=== PATIENT | female | born 1990 | race Caucasian/White ===

== ENCOUNTER 2016-11-14 09:41 | Emergency (ER) | payer MEDICAID ==
[~2016-11-14] VITALS: Ht 172.7 cm; Wt 86.4 kg
[~2016-11-14 09:41] MED LIST: BUPR150T12 PO; HYDR25CA PO; NPR500T PO
[2016-11-14 09:56] VITALS: BP 127/88; PULSE 114; RESP 16; O2SAT 97
--- NOTE | 2016-11-14 10:20 | ED.REPORT ---
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 The swelling and pain started immediately after the injection. Pt denies CP and SOB. Pt tried to use Suboxone at crisis last week. She uses about 0.4g of heroin daily and also uses methamphetamine. She has used for about 1 year. Pt denies THC and cocaine use. Nursing Notes Stated Complaint: POSSIBLE ALLERGIC REACTION Chief Complaint: Skin Rash/Abscess Nursing Notes Reviewed: Yes Allergies: Coded Allergies: Sulfa (Sulfonamide Antibiotics) (Verified Allergy, Severe, 04/08/16) Penicillins (Verified Allergy, Unknown, rash, 04/08/16) Scheduled Bupropion ER (Bupropion ER) 150 Mg Tablet.er 150 MG PO DAILY Scheduled PRN Hydroxyzine Pamoate (Vistaril) 25 Mg Capsule 25 MG PO Q6H PRN PRN ANXIETY Naproxen (Naproxen) 500 Mg Tab 500 MG PO BID PRN PRN For Pain General Time Seen by MD: 10:19 Chief Complaint Swelling (R forearm) Hx Obtained From: Patient Arrived By: Walk-in Onset Occurred: 16 - 30 minutes ago Symptom Duration: Since onset Location: : Arm right Quality: Painful Severity: Current: Mild Pertinent Negative: Relieved by nothing Past Medical History Past Medical History Anxiety Polysubstance abuse Past Surgical History Denies Smoking History Former Smoker Social History Alcohol Use: Denies alcohol use Drug Use: IV drugs (Heroin) Review of Systems Constitutional: Denies: Fever Respiratory: Denies: Shortness of breath GI: Denies: Abdominal pain, Vomiting Skin: Reports Rash, Reports Swelling Complete sys rev & neg: except as marked. Cardiovascular: Denies: Chest pain Physical Exam Initial Vital Signs Vital Signs (First) Date Time Temp Pulse Resp B/P Pulse Ox O2 Delivery O2 Flow Rate FiO2 11/14/16 09:56 36.6 114 16 127/88 97 Initial VS: Reviewed Head / Eyes: Atraumatic, Normocephalic, PERRL ENT: Mucous membranes moist, Conjunctiva normal, No scleral icterus Neck: Full range of motion Abdomen / GI: Soft, Non-tender Extremities: Vascular intact, Neuro intact Neurologic: Alert, Oriented, Nonfocal Psychiatric: Mood/affect normal, Behavior normal, Normal thought content General/Constitutional: Awake, Alert Respiratory / Chest: Breath sounds NL, Breath sounds = bilat, No respiratory distress, No rales, No rhonchi, No wheezing, No retractions, No stridor Cardiovascular: Heart rate NL, Regular rhythm, Heart sounds NL, Peripheral circulation NL Skin: Warm, Dry Re-Eval/Medical Decision Re-Evaluation/Progress : Time of Eval: 10:36 Re-Evaluation/Progress Note: Discussed plan for discharge and follow up. All questions addressed. Counseled Regarding: Diagnosis, Need for follow-up, When/why to return to ED Discharge & Departure Primary Impression: Opioid abuse Additional Impression: Abscess Disposition: Home Discharge Condition All VS Reviewed: Yes Condition: Improved Patient Instructions: Abscess (ED), Buprenorphine/Naloxone (By mouth) Additional Instructions: For the small abscesses you can take the antibiotic, Clindamycin, as directed. It might be helpful to use some hot compresses. If you develop a yeast infection take the fluconazole as directed. Do not use the Suboxone today. Do not take this until you wait 24 hours, or if your COWS score is above 15. Starting tomorrow, take a strip of Suboxone daily. Do not talk, drink or swallow this for about 15 minutes after taking. Call Dimitri Rebollar on Wednesday to schedule a follow up appointment for further care. Return to the ER for fevers, chills or other concerning symptoms. Referrals: NOPCP (PCP) DIMITRI Urias Attestation Portions of this note were transcribed by Ariadna Ibarra. I, (Dr. Espino) personally performed the history, physical exam and medical decision-making; I reviewed and confirmed the accuracy of the information in the transcribed note. Signed by: Ariadna Ibarra. Bridgett, 11/14/2016, 1036 copies to: Dangelo Barney MD Nov 14, 2016 10:20 Ariadna Ibarra Nov 14, 2016 10:26
[2016-11-14] MEDS ORDERED: CLIN300C3 PO (10:56)
[2016-11-14] MEDS ORDERED: BUPR1FIL3 SL (10:56)
[2016-11-14] MEDS ORDERED: FLUC150T3 PO (10:59)
[2016-11-14 11:08] VITALS: BP 114/76; PULSE 93; O2SAT 96
== END 2016-11-14 11:02 | disposition home or self-care (01) ==
LOC: SED 09:41
DX: L02.413 Cutaneous abscess of right upper limb (principal); F11.20 Opioid dependence, uncomplicated; Z87.891 Personal history of nicotine dependence; Z79.899 Other long term (current) drug therapy; Z88.0 Allergy status to penicillin; Z88.2 Allergy status to sulfonamides

== ENCOUNTER 2016-12-08 12:06 | Emergency (ER) | payer MEDICAID ==
[~2016-12-08 12:06] MED LIST changes: +BUPR1FIL3 SL; +CLIN300C3 PO; +FLUC150T3 PO
[2016-12-08 12:55] VITALS: BP 119/72; PULSE 95; RESP 16; O2SAT 98
--- NOTE | 2016-12-08 15:11 | ED.REPORT ---
HPI-Chest Pain 40 and Over Date of Service Dec 08, 2016 ED Provider: Jj Pineda MD The patient is a 26 year old female with history of anxiety and polysubstance abuse, who presents to the emergency department complaining of left-sided rib pain that began yesterday. The patient tripped over a stool and hit the left side of her chest on a couch. Her pain is worse with deep breathing. She has noticed some bruising to the area. She denies fever, chills, cough, rash or vomiting. She last used heroin 2 days ago. She has a prescription for Suboxone but has not picked this up yet. Nursing Notes Stated Complaint: RIB PAIN Chief Complaint: Chest Pain-Non Cardiac Nature Nursing Notes Reviewed: Yes Allergies: Coded Allergies: Sulfa (Sulfonamide Antibiotics) (Verified Allergy, Severe, 12/08/16) Penicillins (Verified Allergy, Unknown, rash, 12/08/16) Scheduled Buprenorphine HCl/Naloxone HCl (Suboxone 8 mg-2 mg Sl Film) 1 Each Film 1 EACH SL DAILY Bupropion ER (Bupropion ER) 150 Mg Tablet.er 150 MG PO DAILY Clindamycin HCl (Cleocin) 300 Mg Capsule 300 MG PO QID Fluconazole (Fluconazole) 150 Mg Tablet 150 MG PO ONCE Scheduled PRN Hydroxyzine Pamoate (Vistaril) 25 Mg Capsule 25 MG PO Q6H PRN PRN ANXIETY Naproxen (Naproxen) 500 Mg Tab 500 MG PO BID PRN PRN For Pain General Time Seen by MD: 15:06 Chief Complaint Chest pain Hx Obtained From: Patient Arrived By: Walk-in Sudden in Onset?: Yes Onset Occurred: Yesterday Context of Onset: Fall Symptom Duration: Since onset Location: : Chest left Quality: Painful, Pleuritic Radiation: : Does not radiate Migration/Movement: Reports: None Severity: Current: Mild Severity: Maximum: Moderate Recent Healthcare: No recent doctor visit, No recent hospitalization Past Medical History Past Medical History Anxiety Polysubstance abuse Past Surgical History Denies Family History Noncontributory Smoking History Current Every Day Smoker Social History Alcohol Use: Denies alcohol use Drug Use: IV drugs Other Social History: Local resident Ambulatory Status Independent Review of Systems Constitutional: Denies: Chills, Fever Respiratory: Reports: Pleuritic pain, Denies: Non-productive cough Cardiovascular: Reports: Chest pain GI: Denies: Vomiting Skin: Reports Bruising, Denies Rash Complete sys rev & neg: except as marked. Physical Exam Initial Vital Signs Vital Signs (First) Date Time Temp Pulse Resp B/P Pulse Ox O2 Delivery O2 Flow Rate FiO2 12/08/16 12:55 37.2 95 16 119/72 98 Room Air Initial VS: Reviewed Head / Eyes: Atraumatic, Normocephalic, PERRL ENT: Mucous membranes moist, Conjunctiva normal, No scleral icterus Neck: Supple, Non-tender, Full range of motion Lymphatic: No lymphadenopathy Extremities: Vascular intact, Neuro intact, No swelling, No tenderness Skin: Warm, Dry, No cyanosis Neurologic: Alert, Oriented, Nonfocal Psychiatric: Mood/affect normal, Behavior normal, Normal thought content General/Constitutional: Awake, Alert, No acute distress, Well appearing Respiratory / Chest: Breath sounds NL, Breath sounds = bilat, No respiratory distress, No rales, No rhonchi, No wheezing, No stridor Scattered ecchymosis about the left lateral chest wall. There is no crepitus or palpable fractures. Cardiovascular: Heart rate NL, Regular rhythm, Heart sounds NL, No gallop, No murmurs, Peripheral circulation NL, Pulses = bilaterally, No gross BP differential Abdomen: Atraumatic, Soft, Non-tender, McBurney's non-tender, No guarding, No rebound, BS normoactive, No distention, No hernia, No palpable mass Interpretation & Diagnostics Interpretation & Diagnostics: Urine drug screen: positive for cocaine, methamphetamine, opiates, and amphetamines Urine : negative ECG Interpretation ECG Interpretation: Sinus rhythm with a rate of 82 Normal axis Normal intervals No T wave abnormalities No ST segment changes No prior for comparison Time: 15:48 Interpreted by: ED physician X-Ray Chest Interpretation Chest Xray Interpretation: IMPRESSION: No displaced left rib fractures. No pneumothorax. Dictated by: Jalen Garay M.D. on 12/08/2016 at 14:17 Interpretation / Wet Read by: Interpret - Radiologist Re-Eval/Medical Decision Med Decision/Clinical Course Patient is a 26-year-old female with a history of polysubstance abuse who presents to the emergency department with left sided chest wall pain after falling against a couch yesterday. Here in the emergency part she is afebrile, hemodynamically stable and in no respiratory distress. Examination reveals tenderness about the left side of her chest without any palpable rib fractures, crepitance or deformity. Chest x-ray demonstrates no evidence of pneumonia, pneumothorax or rib fractures. EKG demonstrates normal sinus rhythm without any conduction abnormalities, evidence of ischemia or changes suggestive of pericarditis. Of note a urine drug screen was obtained in triage that was positive for methamphetamine, cocaine, opiates. We have counseled the patient about the risks of using drugs. At this time I see no evidence of any significant traumatic injury. I recommended the patient apply ice packs and take ibuprofen or Tylenol for pain. Prior to discharge follow-up and return precautions were reviewed in detail with the patient who verbalized understanding and agreement with the plan. The patient was discharged in stable condition. Source of Hx: Old records Time of Eval: 15:29 Re-Evaluation/Progress Note: Rechecked the patient. Discussed results, diagnosis, and plan for discharge. All questions were addressed. Counseled Regarding: Diagnosis, Need for follow-up, When/why to return to ED Discharge & Departure Primary Impression: Chest wall pain Additional Impressions: Fall from ground level Polysubstance abuse Disposition: Home Discharge Condition All VS Reviewed: Yes Condition: Stable Additional Instructions: Thank you for seeking care at the emergency room. It is difficult for us to make definitive diagnoses in the ED but we believe that you are experiencing chest wall pain from bruising and muscle sprain. Our primary goal today in the ED was to evaluate you for any life-threatening conditions. Your evaluation was reassuring. The you apply ice packs and take [id number] ibuprofen or Tylenol as instructed. You should follow-up with your primary doctor in the next week. You should return to the ED immediately if you develop worse pain, fevers, vomiting, cough, shortness of breath, chest pain, lightheadedness, weakness or any other concerning signs or symptoms. Thank you for letting us partake in your care today. Referrals: [facility] Scribe Attestation Portions of this note were transcribed by Sabine Villela. I, Dr. Pineda personally performed the history, physical exam and medical decision-making; I reviewed and confirmed the accuracy of the information in the transcribed note. Signed by: Bridgett Patel, 12/08/2016 at 1600. Jj Pineda MD Dec 08, 2016 15:11 Sabine Villela Dec 08, 2016 15:19
--- NOTE | 2016-12-08 15:22 | DRSVH ---
PROCEDURE: X-RAY LEFT RIBS INCLUDEING PA CHEST, MINUMUM THREE VIEWS ([id number]) INDICATIONS: TRAUMA TECHNIQUE: 2 views of the left ribs were acquired, along with a single view chest. COMPARISON: None. FINDINGS: Surgical changes and devices: None. Bones and chest wall: No fractures or dislocations. No suspicious bony lesions. Overlying soft tis sues appear unremarkable. Lungs and pleura: No pleural effusions or pneumothorax. Lungs appear clear. Mediastinum: Mediastinal contours appear normal. Heart size is normal. IMPRESSION: No displaced left rib fractures. No pneumothorax. Dictated by: Jalen Garay M.D. on 12/08/2016 at 14:17 Approved by: Jalen Garay M.D. on 12/08/2016 at 14:20
[2016-12-08 16:09] VITALS: BP 116/72; PULSE 96; RESP 15; O2SAT 98
== END 2016-12-08 16:10 | disposition home or self-care (01) ==
LOC: SED 12:06
DX: R07.89 Other chest pain (principal); W18.09XA Striking against other object with subsequent fall, initial encounter; Y93.9 Activity, unspecified; Y92.9 Unspecified place or not applicable; Y99.8 Other external cause status; F19.10 Other psychoactive substance abuse, uncomplicated; F17.200 Nicotine dependence, unspecified, uncomplicated; Z88.2 Allergy status to sulfonamides; Z88.0 Allergy status to penicillin
CPT/HCPCS: 71101; 81002; 81025; 93005; 96372; 99284; J1885

== ENCOUNTER 2017-01-05 14:44 | Emergency (ER) | payer MEDICAID ==
[~2017-01-05] VITALS: Ht 175.3 cm; Wt 81.8 kg
[2017-01-05 14:48] VITALS: BP 118/77; RESP 16; O2SAT 100
--- NOTE | 2017-01-05 15:50 | ED.REPORT ---
HPI-URI / Cough / Cold Date of Service January 05, 2017 ED Provider: Luci Myers History of Present Illness: not seen Nursing Notes Stated Complaint: COLD Chief Complaint: ENT & Mouth Allergies: Coded Allergies: Sulfa (Sulfonamide Antibiotics) (Verified Allergy, Severe, 12/08/16) Penicillins (Verified Allergy, Unknown, rash, 12/08/16) Scheduled Buprenorphine HCl/Naloxone HCl (Suboxone 8 mg-2 mg Sl Film) 1 Each Film 1 EACH SL DAILY Bupropion ER (Bupropion ER) 150 Mg Tablet.er 150 MG PO DAILY Clindamycin HCl (Cleocin) 300 Mg Capsule 300 MG PO QID Fluconazole (Fluconazole) 150 Mg Tablet 150 MG PO ONCE Scheduled PRN Hydroxyzine Pamoate (Vistaril) 25 Mg Capsule 25 MG PO Q6H PRN PRN ANXIETY Naproxen (Naproxen) 500 Mg Tab 500 MG PO BID PRN PRN For Pain General Time Seen by MD: 15:49 Past Medical History Past Medical History Anxiety Polysubstance abuse Past Surgical History Denies Family History Noncontributory Smoking History Current Every Day Smoker Social History Alcohol Use: Denies alcohol use Drug Use: IV drugs Other Social History: Local resident Ambulatory Status Independent Physical Exam Initial Vital Signs Vital Signs (First) Date Time Temp Pulse Resp B/P Pulse Ox O2 Delivery O2 Flow Rate FiO2 01/05/17 14:48 36.5 112 16 118/77 100 Room Air Discharge & Departure Referrals: NOPCP (PCP) Luci Myers January 05, 2017 15:50
== END 2017-01-05 16:18 | disposition left against medical advice (07) ==
LOC: SED 14:44
DX: J00 Acute nasopharyngitis [common cold] (principal); Z53.1 Procedure and treatment not carried out because of patient's decision for reasons of belief and group pressure

== ENCOUNTER 2017-03-13 00:32 | Emergency (ER) | payer MEDICAID ==
[~2017-03-13] VITALS: Ht 175.3 cm; Wt 81.8 kg
[2017-03-13 00:36] VITALS: BP 124/80; RESP 17; O2SAT 98
--- NOTE | 2017-03-13 01:46 | ED.REPORT ---
HPI-General Illness Date of Service Mar 13, 2017 ED Provider: Magdi Jean MD The pt is a 27 y/o female presenting to the ED complaining of epistaxis onset 3 days ago. She reports the bleeding coming from both nostrils but being worse on the L. She states that she has a hx of "nosebleed troubles" and says that she did not do anything to set off this episode. Nursing Notes Stated Complaint: NOSEBLEED Chief Complaint: ENT & Mouth Nursing Notes Reviewed: Yes Allergies: Coded Allergies: Sulfa (Sulfonamide Antibiotics) (Verified Allergy, Severe, 03/13/17) Penicillins (Verified Allergy, Unknown, rash, 03/13/17) Scheduled Buprenorphine HCl/Naloxone HCl (Suboxone 8 mg-2 mg Sl Film) 1 Each Film 1 EACH SL DAILY Bupropion ER (Bupropion ER) 150 Mg Tablet.er 150 MG PO DAILY Clindamycin HCl (Cleocin) 300 Mg Capsule 300 MG PO QID Fluconazole (Fluconazole) 150 Mg Tablet 150 MG PO ONCE Scheduled PRN Hydroxyzine Pamoate (Vistaril) 25 Mg Capsule 25 MG PO Q6H PRN PRN ANXIETY Naproxen (Naproxen) 500 Mg Tab 500 MG PO BID PRN PRN For Pain General Time Seen by MD: 01:41 Chief Complaint Other (Epistaxis ) Hx Obtained From: Patient Arrived By: Walk-in Sudden in Onset?: Yes Onset Occurred: 3 days ago Symptom Duration: Intermittent Recent Healthcare: No recent doctor visit, No recent hospitalization Similar Sx Previous: Yes Past Medical History Past Medical History Anxiety Polysubstance abuse Past Surgical History Denies Family History Noncontributory Smoking History Current Every Day Smoker Social History Alcohol Use: Denies alcohol use Drug Use: IV drugs Other Social History: Local resident Ambulatory Status Independent Review of Systems Full Review of Systems Ears / Nose / Throat: Reports: Nose bleeding Complete sys rev & neg: except as marked. Physical Exam Vital Signs Vital Signs Date Time Temp Pulse Resp B/P Pulse Ox O2 Delivery O2 Flow Rate FiO2 03/13/17 00:36 36.4 113 17 124/80 98 Room Air Initial VS: Reviewed General/Constitutional: Well-developed, Well-nourished Head / Eyes: Atraumatic, Normocephalic, PERRL Neck: Supple, Non-tender, Full range of motion Respiratory: Breath sounds normal, Clear to auscultation, No respiratory distress Cardiovascular: Regular rate & rhythm, Heart sounds normal, Intact distal pulses Abdomen / GI: Soft, Non-tender, No guarding, No rebound, No distention Extremities: Vascular intact, Neuro intact, No swelling, No tenderness Skin: Warm, Dry, No cyanosis Neurologic: Alert, Oriented, Nonfocal Psychiatric: Mood/affect normal, Behavior normal, Normal thought content ENT: Airway patent Retraction bilat in tympanic membranes Clot adherent to septum anteriorly Re-Eval/Medical Decision Med Decision/Clinical Course 27-year-old with intermittent epistaxis over the last three days. Single source seen on the septum on the left. This was cauterized with silver nitrate. Hemostatic at present. Home with Afrin spray for when necessary use, nasal clip, and instructions. Time of Eval: 01:54 Re-Evaluation/Progress Note: Rechecked pt. Managed epistaxis using silver nitrate stick. Time of Eval: 02:00 Re-Evaluation/Progress Note: Pt rechecked. Informed pt of plan for treatment. Pt understands and agrees with plan for treatment. F/U instructions and RTER warnings given. All questions addressed. Counseled Regarding: Diagnosis, Need for follow-up, When/why to return to ED Discharge & Departure Primary Impression: Epistaxis Disposition: Home Discharge Condition All VS Reviewed: Yes Condition: Stable Patient Instructions: Nosebleed (ED) Additional Instructions: Leave your nose entirely alone. Do not blow, sniff, wiggle, sneeze, rub or otherwise disturb. If your nose begins to bleed, apply heavy application of Afrin spray, spitting the excess out. Then clamped. Nose for thirty minutes. Do not interrupt that clamping at any point during that time. If that does not control the bleeding, return here. Follow-up with your doctor in the office. If you need a local physician, the residency clinic can see you for routine care. If you continue to have troubles with nosebleeds, ear nose and throat can see you. Call their office during the week. Referrals: Shilo Esteban MD [facility] Scribe Attestation Portions of this note were transcribed by Justice Cheung. I, Dr. Jean personally performed the history, physical exam and medical decision-making; I reviewed and confirmed the accuracy of the information in the transcribed note. Signed by : Bridgett Ibanez, 03/12/17 and 0307. copies to: Shilo Esteban MD; [facility] Magdi Jean MD Mar 13, 2017 01:46 Justice Cheung Mar 13, 2017 03:07
[2017-03-13] MEDS ORDERED: Silver Nitrate Stick TOPICAL ONE (01:50)
== END 2017-03-13 02:08 | disposition home or self-care (01) ==
LOC: SED 00:32
DX: R04.0 Epistaxis (principal); F41.9 Anxiety disorder, unspecified; F17.200 Nicotine dependence, unspecified, uncomplicated; Z88.0 Allergy status to penicillin; Z88.2 Allergy status to sulfonamides

== ENCOUNTER 2017-05-09 15:45 | Inpatient (IN) | payer MEDICAID ==
[~2017-05-09] VITALS: Ht 175.3 cm; Wt 81.8 kg
[2017-05-09 16:01] VITALS: BP 136/83; PULSE 124; RESP 16; O2SAT 100
--- NOTE | 2017-05-09 17:52 | DRSVH ---
PROCEDURE: X-RAY CHEST ONE VIEW, PORTABLE ([id number]) INDICATIONS: fever, tachycardia TECHNIQUE: One view of the chest was acquired. COMPARISON: [facility], CR, XR CHEST 2VW, 05/07/2015, 18:01. FINDINGS: Surgical changes and devices: None. Lungs and pleura: No pleural effusions or pneumothorax. Lungs are clear. Mediastinum: Mediastinal contours appear normal. Heart size is normal. Bones and chest wall: No suspicious bony lesions. Overlying soft tissues appear unremarkable. IMPRESSION: No acute or active disease is seen in the portable upright chest. Dictated by: Teddy Berg M.D. on 05/09/2017 at 17:50 Approved by: Teddy Berg M.D. on 05/09/2017 at 17:51
--- NOTE | 2017-05-09 17:53 | ED.REPORT ---
HPI-General Illness Date of Service May 09, 2017 ED Provider: Jj Pineda MD The pt is a 27 year old female with a history of anxiety and polysubstance abuse who presents to the ED complaining of diffuse body aches, subjective fevers all in the setting of using IV heroin. The pt complains of significant muscle pains in all her extremities, fever and nausea. She has been using IV heroin for one year and denies any history of endocarditis. She denies any other past medical history. Nursing Notes Stated Complaint: ILL - NAUSEA Chief Complaint: General Complaint Nursing Notes Reviewed: Yes Allergies: Coded Allergies: Sulfa (Sulfonamide Antibiotics) (Verified Allergy, Severe, 05/09/17) Penicillins (Verified Allergy, Unknown, rash, 05/09/17) Scheduled Buprenorphine HCl/Naloxone HCl (Suboxone 8 mg-2 mg Sl Film) 1 Each Film 1 EACH SL DAILY Bupropion ER (Bupropion ER) 150 Mg Tablet.er 150 MG PO DAILY Clindamycin HCl (Cleocin) 300 Mg Capsule 300 MG PO QID Fluconazole (Fluconazole) 150 Mg Tablet 150 MG PO ONCE Scheduled PRN Hydroxyzine Pamoate (Vistaril) 25 Mg Capsule 25 MG PO Q6H PRN PRN ANXIETY Naproxen (Naproxen) 500 Mg Tab 500 MG PO BID PRN PRN For Pain General Time Seen by MD: 16:56 Chief Complaint Other (Myalgia) Hx Obtained From: Patient Arrived By: Walk-in Sudden in Onset?: No Symptom Duration: Since onset Recent Healthcare: Recent doctor visit Similar Sx Previous: No Past Medical History Past Medical History Anxiety Polysubstance abuse Past Surgical History None reported Family History Noncontributory Smoking History Current Every Day Smoker Social History Alcohol Use: Denies alcohol use Drug Use: IV drugs Other Social History: Local resident Ambulatory Status Independent Review of Systems Full Review of Systems Constitutional: Reports: Fever Respiratory: Denies: Non-productive cough, Shortness of breath Cardiovascular: Denies: Chest pain GI: Reports: Nausea, Denies: Abdominal pain Musculoskeletal: Reports: Myalgia Complete sys rev & neg: except as marked. Physical Exam Vital Signs Vital Signs Date Time Temp Pulse Resp B/P Pulse Ox O2 Delivery O2 Flow Rate FiO2 05/09/17 16:01 37.6 124 16 136/83 100 Room Air Initial VS: Reviewed General/Constitutional: Awake, Alert Head / Eyes: Atraumatic, Normocephalic, PERRL, EOMI ENT: Atraumatic, Airway patent, Mucous membranes moist Neck: Atraumatic, Supple, Full range of motion Respiratory / Chest: Atraumatic, Breath sounds NL, Breath sounds = bilat, No respiratory distress Cardiovascular: Regular rhythm, Heart sounds NL Heart Rate / Rhythm: Positive: Tachycardia grade 2 systolic murmur, left upper sternal border Abdomen: Soft, Non-tender, No distention Back: Full range of motion Upper Extremities Upper Extremity / MS: Full range of motion, Neurologic intact, Vascular intact Lower Extremity / Pelvis / MS: Atraumatic, Full range of motion no calf swelling or tenderness Skin: Color NL, Warm, Dry no obvious stigmata of endocarditis Neurologic: Oriented X3, Speech NL, No motor deficits, No sensory deficits Psychiatric: Affect NL, Mood NL Interpretation & Diagnostics Lab Results Interpretation Result Diagram: 05/09/17 1805 05/09/17 1805 Test 05/09/17 17:47 05/09/17 18:05 Urine Color Yellow (YELLOW) Urine Appearance Clear (CLEAR,HAZY) Urine pH 5.5 (5.0-8.0) Urine Specific [place] 1.015 (1.003-1.035) Urine Protein Negativemg/dL (NEG,TRACE) Urine Glucose (UA) Negativemg/dL (NEGATIVE) Urine Ketones Negativemg/dL (NEGATIVE) Urine Occult Blood Large (NEGATIVE) Urine Nitrite Negative (NEGATIVE) Urine Bilirubin Negative (NEGATIVE) Urine Urobilinogen Normalmg/dL (NORMAL) Urine Leukocyte Esterase Negative (NEGATIVE) Urine RBC 3-10/hpf (0-2) Urine WBC 0-5/hpf (0-5) Urine Epithelial Cells Few/hpf (NONE-MOD) Urine Crystals None seen (NONE SEEN) Urine Bacteria Few/hpf (NONE-FEW) Urine Hyaline Casts None/lpf (NONE) Urine Granular Casts None seen (NONE SEEN) Urine Waxy Casts None seen (NONE SEEN) Urine Red Blood Cell Casts None seen (NONE SEEN) Urine White Blood Cell Casts None seen (NONE SEEN) Urine Mucus None seen (None Seen) Urine Trichomonas None seen (NONE SEEN) Urine Yeast None (NONE SEEN) Urinalysis Comment None Urine Culture Reflexed Not indicated White Blood Count 3.7th/mm3 (3.8-10.1) Red Blood Count 4.65mil/mm3 (3.90-5.20) Hemoglobin 13.2g/dL (12.0-15.6) Hematocrit 39.8% (35.0-46.0) Mean Corpuscular Volume 85.6fL (81-100) Mean Corpuscular Hemoglobin 28.4pg (27.0-35.0) Mean Corpuscular Hemoglobin Concent 33.2% (32.0-37.0) Red Cell Distribution Width 13.3% (12.3-15.4) Platelet Count 190bil/L (150-400) Neutrophils (%) (Auto) 91.0% (40-74) Lymphocytes (%) (Auto) 8.2% (14-46) Monocytes (%) (Auto) 0.5% (4-12) Eosinophils (%) (Auto) 0.3% (0-5) Basophils (%) (Auto) 0% (0-3) Sodium Level 135mEq/L (134-144) Potassium Level 3.4mEq/L (3.5-5.2) Chloride Level 97mEq/L (97-108) Carbon Dioxide Level 21mmol/L (18-29) Blood Urea Nitrogen 12mg/dL (6-20) Creatinine 0.66mg/dL (0.57-1.00) Estimat Glomerular Filtration Rate 155mL/min (>59) Glucose Level 85mg/dL (60-99) Calcium Level 8.8mg/dL (8.5-10.1) Magnesium Level 1.3mg/dL (1.6-2.6) Total Bilirubin 0.8mg/dL (0.0-1.2) Aspartate Amino Transf (AST/SGOT) 51U/L (0-50) Alanine Aminotransferase (ALT/SGPT) 65U/L (0-32) Alkaline Phosphatase 95U/L (25-150) Troponin T < 0.010ug/L (0.0-0.011) Total Protein 7.3g/dL (6.4-8.4) Albumin 3.8g/dL (3.4-5.0) ECG Interpretation ECG Interpretation: tachycardic with a rate of 107 normal axis normal interval no ST segment elevation no T wave inversions when compared to prior dated 12/08/2016, now tachycardic Time: 18:52 Interpreted by: ED physician X-Ray Chest Interpretation Chest Xray Interpretation: IMPRESSION: No acute or active disease is seen in the portable upright chest. Dictated by: Teddy Berg M.D. on 05/09/2017 at 17:50 Approved by: Teddy Berg M.D. on 05/09/2017 at 17:51 Interpretation / Wet Read by: Interpret - Radiologist Re-Eval/Medical Decision Med Decision/Clinical Course In summary, the patient is a 27-year-old female, active IV drug user who presents to the emergency department complaining of diffuse body aches, subjective fevers and feeling generally unwell. Here in the emergency department the patient is generally unwell-appearing, tachycardic in the 120s though is afebrile. Laboratory studies notable as below: Leukopenia with a white count of 3.7 UA unremarkable negative CMP unremarkable except for mildly elevated transaminases EKG: tachycardic with a rate of 107 normal axis normal interval no ST segment elevation no T wave inversions when compared to prior dated 12/08/2016, now tachycardic Chest X-Ray: IMPRESSION: No acute or active disease is seen in the portable upright chest. On examination the patient does have an appreciable systolic murmur. Given her constellation of symptoms, tachycardia and subjective fevers I am moderately concerned for bacterial endocarditis secondary to her IV drug use. I have no other good explanation for the patient's symptoms at this time. She denies that she could be actively withdrawing from heroin as she just used prior to arrival. Patient was discussed with cardiology and we ordered a stat echocardiogram. Unfortunately, this will not be performed until tomorrow morning. Further discussion with cardiology and hospitalist we have opted to start the patient on IV vancomycin after obtaining 2 sets of blood cultures. Patient has been admitted to the hospitalist service for further management and have her stat echocardiogram in the morning. She received IV fluids with improvement in her heart rate and remained stable at time of transfer. Time of Eval: 16:56 Patient Status: Condition improved Re-Evaluation/Progress Note: Pt informed of the diagnosis and plan for admission during the initial interview. The pt understands and agrees with the plan. All questions are addressed at this time. Consultation : Referral / Consult Name: Yolis Hernandez DO Consulted With: Hospitalist Call Returned at: 17:06 Branch Service Representative: Agrees with eval, Agrees with plan, Accepts admit Note: Spoke with Dr. Hernandez, hospitalist, regarding pt's case. Dr. Hernandez agrees with the evaluation and agrees to admit the pt. Counseled Regarding: Diagnosis, Lab results, Need for admission Discharge & Departure Primary Impression: Fever Fever type: unspecified Qualified Code: R50.9 - Fever, unspecified Additional Impressions: Heart murmur IV drug abuse Tachycardia Disposition: ADMITTED TO HOSPITAL Discharge Condition All VS Reviewed: Yes Condition: Stable Referrals: Osmany Bhatti DO Crit Care Except Billable Proc Time Spent: 75-104 minutes Services Performed: Patient management by me, Time spent at bedside, Reviewing test results, Reviewing imaging, Discussing patient care, Documentation in record Critical Care Notes: Initiation of therapy and acute management of possible bacterial endocarditis in IV drug user Discussions with cardiology and admitting hospitalist Scribe Attestation Portions of this note were transcribed by Meena Rodriguez. I, Dr. Pineda personally performed the history, physical exam and medical decision-making; I reviewed and confirmed the accuracy of the information in the transcribed note. copies to: Osmany Bhatti Beck O MD May 09, 2017 17:53 MEENA RODRIGUEZ May 09, 2017 18:04
[2017-05-09] MEDS ORDERED: Alum-Mag Hydrox-Simeth 30 mL Suspension PO PRN (18:00)
[2017-05-09] MEDS ORDERED: Ondansetron 2 mg/mL 2 mL Inj IVPUSH PRN ×2 (18:00→20:15)
[2017-05-09 18:20] LABS: BASOPHILS % (AUTO) 0 % (0-3); EOSINOPHILS % (AUTO) 0.3 % (0-5); MONOCYTES % (AUTO) 0.5 % (4-12); Mean Corpuscular Hemoglobin 28.4 pg (27.0-35.0); Mean Corpuscular Volume 85.6 fL (81-100); Platelet Count 190 bil/L (150-400)
[2017-05-09 18:22] LABS: APPEARANCE,URINE CLEAR (CLEAR,HAZY); COLOR,URINE YELLOW (YELLOW); OCCULT BLOOD,URINE LARGE (NEGATIVE); PH,URINE 5.5 (5.0-8.0); UROBILINOGEN,URINE NORMAL (NORMAL)
--- NOTE | 2017-05-09 18:33 | NUR ---
Admit nurse: Pt unable to answer most questions, moans/grunts, occasionally will answer yes/no. Admit completed with info available in record. Unable to complete med rec at this time.
[2017-05-09] MEDS ORDERED: Vancomycin Inj 1,750 MG in 0.9% Sodium Chloride 500 ML IV ONE (18:50)
[2017-05-09] MEDS ORDERED: cefTRIAXone 2,000 mg/D5W 50 mL IV Minibag Plus IV ONE ×2 (18:50)
[2017-05-09] MEDS ORDERED: Vancomycin Dose per Pharmacist XX ONE (18:54)
[2017-05-09] MEDS ORDERED: 0.9% Sodium Chloride 1,000 ML IV ONE (18:55)
[2017-05-09 19:06] LABS: Magnesium 1.3 mg/dL (1.6-2.6)
[2017-05-09 19:12] LABS: TROPONIN T < 0.010 ug/L (0.0-0.011)
[2017-05-09 19:43] VITALS: BP 102/71; PULSE 111; RESP 20; O2SAT 97
[2017-05-09] MEDS ORDERED: 0.9% Sodium Chloride 1,000 ML IV SCH (20:12)
[2017-05-09] MEDS ORDERED: Polyethylene Glycol (PEG) 17 Gm Powder PO PRN (20:15)
--- NOTE | 2017-05-09 21:35 | PCM.HPMED ---
Subjective Date of Service May 09, 2017 Primary Provider: Admitting Physician: Pa San MD Primary Care Physician: El Attending Physician: Pa San MD Admit Status: From the Emergency Department Chief Complaint: Muscle Pain History of Present Illness: Patient is a 27yo female that presents with myalgias with a history of polysubstance abuse, and anxiety. Majority of HPI taken from ED note as patient was unable/unwilling to participate in an interview. Upon entering the room, patient was sleeping. She was responsive to her name and provided single word answers when prompted loudly. Patient has had myalgias for an unknown period of time accompanied by fever and nausea. She has been using IV heroin for one year and denies a history of endocarditis. She reported significant muscle pains in her extremities, fever, and nausea. She admitted to last using heroin this weekend. Review of Systems: Unable to obtain due to lack of patient cooperation Allergies Coded Allergies: Sulfa (Sulfonamide Antibiotics) (Verified Allergy, Severe, 05/09/17) Penicillins (Verified Allergy, Unknown, rash, 05/09/17) Home Medications Per chart review Buprenorphine HCl/Naloxone HCl (Suboxone 8 mg-2 mg Sl Film) 1 Each Film 1 EACH SL DAILY Bupropion ER (Bupropion ER) 150 Mg Tablet.er 150 MG PO DAILY Clindamycin HCl (Cleocin) 300 Mg Capsule 300 MG PO QID Fluconazole (Fluconazole) 150 Mg Tablet 150 MG PO ONCE Hydroxyzine Pamoate (Vistaril) 25 Mg Capsule 25 MG PO Q6H PRN PRN ANXIETY Naproxen (Naproxen) 500 Mg Tab 500 MG PO BID PRN PRN For Pain PMH 1. Polysubstance Dependence 2. Anxiety Surgical History 1. No known history Family History Unable to obtain due to lack of patient cooperation Social History Hx Alcohol Use: No Hx Substance Use: Yes (heroin use daily) Hx Tobacco Use: Yes Smoking Status: Current Every Day Smoker Exam Vital Signs Vital Sign - Last Date Time Temp Pulse Resp B/P Pulse Ox O2 Delivery O2 Flow Rate FiO2 05/09/17 19:43 36.8 111 20 102/71 97 Room Air Exam General: Patient is somnolent HEENT: Pupils round and reactive to light. No deformities on external ear, no sinus drainage appreciated, no thyromegaly appreciated CV: Tachycardia with left upper sternal border systolic murmur Resp: CTA B/L without rubs, rhonchi, or wheezing Abd: Non-distended, nontender, normal bowel sounds Ext: No joint swelling. Skin: No rashes on palms or soles. Scattered excoriations on forehead and extremities. No splinter hemorrhages on nails. Neuro: Responsive to name. Can follow basic commands. Lymph: No cervical or axillary lymphadenopathy appreciated. Psych: unable to assess Lab and Diagnostics Result Diagram: 05/09/17180405/09/171804 Assessment & Plan Patient is a 27F with a history of polysubstance dependence and anxiety that presents with myalgias and tachycardia. 1. Suspected Endocarditis, present on admission and ongoing -Patient with active IV drug use with tachycardia, new systolic murmur, fever, and myalgias -Vancomycin to be dosed by pharmacy -Ceftriaxone 2 g IV every 12 hours -Patient has a sulfa and penicillin allergy, no reaction to ceftriaxone in the emergency department. -Echo to be ordered for the morning -Consider cardiology consult 2. Polysubstance dependence, present upon admission and ongoing -Patient admits to heroin use -Screen patient for HIV and hepatitis 3. Hypokalemia, present on admission and ongoing -Patient has potassium of 3.4 on admission - Potassium replacement protocol initiated 4. Hypomagnesemia, present on admission on ongoing -Patient has magnesium of 1.3 upon admission -Magnesium replacement protocol initiated Patient has been admitted into inpatient, he is expected to spend greater than to midnight in the hospital Attending Statement The patient was seen and examined together with Dr. Perez on 05/09 and I agree with the history, exam and plan as outlined in the note above. Mey Perez DO May 09, 2017 21:35 Pa San MD May 10, 2017 01:34
[2017-05-09] MEDS ORDERED: Magnesium Sulf 2 Gm/50mL Water 2 GM in IV Premix 1 EACH IV ONE (23:50)
[2017-05-09] MEDS ORDERED: Potassium Chloride Inj 20 MEQ in Dextrose 5% 250 ML IV ONE (23:50)
[2017-05-10 00:52] VITALS: BP 106/63; PULSE 97; RESP 16; O2SAT 97
--- NOTE | 2017-05-10 01:57 | NUR ---
Admit to [facility] Patient able to transfer self to bed from [facility]. Answering questions with combination of grunts and moans. Denies pain and nausea, and had Vanco running on the IV pole at time of arrival, approximately 1999. Belongings were locked in room closet by security and sharps container removed by housekeeping. Patient awoke at 2330 requesting pain medication and a shower d/t pain in her right hip. Mag and Potassium were ordered stat and ran at 0130. Care continues.
--- NOTE | 2017-05-10 01:59 | PCM.CONPHA ---
Subjective Date of Service: May 10, 2017 Requesting Provider: Mey Perez DO Muscle Pain Reason for Pharmacy Consult: Vancomycin Dosing Objective Vital Signs Date Time Temp Pulse Resp B/P Pulse Ox O2 Delivery O2 Flow Rate FiO2 05/10/17 00:52 36.8 97 16 106/63 97 Room Air 05/09/17 19:43 36.8 111 20 102/71 97 Room Air 05/09/17 16:01 37.6 124 16 136/83 100 Room Air Intake and Output 05/08/17 05/09/17 05/10/17 00:00 00:00 00:00 Intake Total 1000 ml Balance 1000 ml Weight (Kilograms): 81.82 Height (Feet): 5 Height (Inches): 9 Test 05/09/17 17:47 05/09/17 18:05 05/09/17 19:50 Urine Color Yellow (YELLOW) Urine Appearance Clear (CLEAR,HAZY) Urine pH 5.5 (5.0-8.0) Urine Specific [place] 1.015 (1.003-1.035) Urine Protein Negativemg/dL (NEG,TRACE) Urine Glucose (UA) Negativemg/dL (NEGATIVE) Urine Ketones Negativemg/dL (NEGATIVE) Urine Occult Blood Large (NEGATIVE) Urine Nitrite Negative (NEGATIVE) Urine Bilirubin Negative (NEGATIVE) Urine Urobilinogen Normalmg/dL (NORMAL) Urine Leukocyte Esterase Negative (NEGATIVE) Urine RBC 3-10/hpf (0-2) Urine WBC 0-5/hpf (0-5) Urine Epithelial Cells Few/hpf (NONE-MOD) Urine Crystals None seen (NONE SEEN) Urine Bacteria Few/hpf (NONE-FEW) Urine Hyaline Casts None/lpf (NONE) Urine Granular Casts None seen (NONE SEEN) Urine Waxy Casts None seen (NONE SEEN) Urine Red Blood Cell Casts None seen (NONE SEEN) Urine White Blood Cell Casts None seen (NONE SEEN) Urine Mucus None seen (None Seen) Urine Trichomonas None seen (NONE SEEN) Urine Yeast None (NONE SEEN) Urinalysis Comment None Urine Culture Reflexed Not indicated White Blood Count 3.7th/mm3 (3.8-10.1) Red Blood Count 4.65mil/mm3 (3.90-5.20) Hemoglobin 13.2g/dL (12.0-15.6) Hematocrit 39.8% (35.0-46.0) Mean Corpuscular Volume 85.6fL (81-100) Mean Corpuscular Hemoglobin 28.4pg (27.0-35.0) Mean Corpuscular Hemoglobin Concent 33.2% (32.0-37.0) Red Cell Distribution Width 13.3% (12.3-15.4) Platelet Count 190bil/L (150-400) Neutrophils (%) (Auto) 91.0% (40-74) Lymphocytes (%) (Auto) 8.2% (14-46) Monocytes (%) (Auto) 0.5% (4-12) Eosinophils (%) (Auto) 0.3% (0-5) Basophils (%) (Auto) 0% (0-3) Sodium Level 135mEq/L (134-144) Potassium Level 3.4mEq/L (3.5-5.2) Chloride Level 97mEq/L (97-108) Carbon Dioxide Level 21mmol/L (18-29) Blood Urea Nitrogen 12mg/dL (6-20) Creatinine 0.66mg/dL (0.57-1.00) Estimat Glomerular Filtration Rate 155mL/min (>59) Glucose Level 85mg/dL (60-99) Calcium Level 8.8mg/dL (8.5-10.1) Magnesium Level 1.3mg/dL (1.6-2.6) Total Bilirubin 0.8mg/dL (0.0-1.2) Aspartate Amino Transf (AST/SGOT) 51U/L (0-50) Alanine Aminotransferase (ALT/SGPT) 65U/L (0-32) Alkaline Phosphatase 95U/L (25-150) Troponin T < 0.010ug/L (0.0-0.011) Total Protein 7.3g/dL (6.4-8.4) Albumin 3.8g/dL (3.4-5.0) Lactic Acid Level 1.1mmol/L (0.4-2.0) Assessment/Plan Assessment/Plan A: * Vancomycin dosing by pharmacy for 27 y/o woman with suspected endocarditis * She received a vancomycin 1750 mg IV loading dose in the ED * She is also being started on ceftriaxone * Estimated CrCl for this patient is > 120 mL/min (Cockcroft & Gault) * Estimated vancomycin half-life is 7 hours and estimated Vd is 57 liters P: * Start vancomycin 1250 mg IV every 8 hours * Target a vancomycin trough range of 15 - 20 mcg/mL * Draw a trough level prior to the fourth dose Thank you. Pharmacy will continue to follow this patient. Cora Hodgson May 10, 2017 01:59
[2017-05-10] MEDS: Heparin 5,000 Unit/mL Inj SUBQ SCH ×2 (02:50→09:00)
[2017-05-10 04:31] LABS: Magnesium 2.5 mg/dL (1.6-2.6)
[2017-05-10] MEDS ORDERED: Vancomycin Inj 1,250 MG in 0.9% Sodium Chloride 250 ML IV SCH (05:00)
[2017-05-10 05:20] VITALS: BP 100/68; PULSE 85; RESP 18; O2SAT 97
[2017-05-10] MEDS ORDERED: cefTRIAXone Inj 2,000 MG in Dextrose 5% Minibag Plus 50 ML IV SCH (07:00)
[2017-05-10] MEDS ORDERED: Vancomycin Dose per Pharmacist XX SCH (08:30)
[2017-05-10 08:38] LABS: BASOPHILS % (AUTO) 0.1 % (0-3); EOSINOPHILS % (AUTO) 0.1 % (0-5); MONOCYTES % (AUTO) 3.3 % (4-12); Mean Corpuscular Hemoglobin 29.1 pg (27.0-35.0); Mean Corpuscular Volume 86.8 fL (81-100); NEUTROPHILS % (AUTO) 90.1 % (40-74); Platelet Count 191 bil/L (150-400)
[2017-05-10] MEDS ORDERED: Codeine-APAP 30-300 mg Tablet PO PRN (09:00)
[2017-05-10 09:35] VITALS: BP 101/66; PULSE 88; RESP 18; O2SAT 97
--- NOTE | 2017-05-10 09:44 | NUR ---
Social Work-attempted assessment: Data:EMR reviewed. Pt is a 27 y/o female who was admitted on 05/09/17 for possible endocarditis per H&P. Pt's insurance is Medicaid and PCP is Not listed. EMR reviewed. Pt has a history of IV heroin use. SW attempted to see pt at bedside to complete initial assessment, SW role explained. Pt is unwilling to speak with SW at this time and remains quiet with eyes closed in bed. No CD order has been received at this time from MD for assessment. SW to follow up with pt when more appropriate for assessment. SW will continue to follow. Assessment:Pt who is independent at baseline. Plan:SW to follow up with pt when more appropriate and complete initial assessment and CD assessment, once order has been completed by MD. SW will continue to follow. STEVO Pemberton
--- NOTE | 2017-05-10 10:39 | DRSVH ---
[facility] [address] [place] [address] Echocardiogram Report Name: EFREN MANZO RStudy Date: 05/10/2017 Height: 69 in Hospital Exam Location: [facility] Weight: 180 lb Gender: Female BSA: 2.0 m2 : 1990 Age: 27 yrs BP: 100/68 mmHg Reason For Study: Endocarditis History: IVDA, Smoker Ordering Physician: Performed By: Elizabeth Beckford Interpretation Summary 1. Normal left ventricular size, wall thickness and systolic function with an estimated EF of 60-65% 2. Normal right ventricular size and systolic function. The estimated right atrial pressure is 15 mm Hg and the estimated RVSP is 39 mm Hg. 3. Of the valves that were adequately visualized, no obvious vegetations were seen. There is no doppler evidence for significant valvular insufficiency. There is no old study for comparison Procedure: A two-dimensional transthoracic echocardiogram with color flow and Doppler was performed. The study quality was technically adequate. The patient was fidgity during exam due to hip/leg pain. There is no prior echocardiogram noted for this patient. The patient was in normal sinus rhythm during the exam. Left Ventricle: The left ventricle is normal in size, wall thickness, and systolic function without any focal wall motion abnormalities. The ejection fraction is estimated to be 60-65%. Assessment of diastolic parameters indicates normal left ventricular diastolic function and normal filling pressures. Right Ventricle: The right ventricle is normal in size and function. Atria: Both atria are normal in size. Mitral Valve: The mitral valve is normal in structure and function. No obvious vegetations. There is trace mitral regurgitation. Aortic Valve: The aortic valve is trileaflet. The aortic valve opens well. No obvious vegetations. trivial insufficiency. Tricuspid Valve: The tricuspid valve leaflets are thin and pliable. No obvious vegetation. There is mild tricuspid regurgitation. The right ventricular systolic pressure is estimated at 39 mmHg assuming a right atrial pressure of 15 mm Hg. Pulmonic Valve: The pulmonic valve is not well seen, but is grossly normal. A pulmonic valvular vegetation cannot be excluded. There is no pulmonic valvular regurgitation. Great Vessels: The aortic root is normal size. The ascending aorta is normal in size. The IVC is dilated (diameter is greater than 2.1 cm) and it collapses less than 50% with a sniff. This suggests a high right atrial pressure of 15 mm Hg. Pericardium/ Pleura There is no pericardial effusion. MMode/2D Measurements & Calculations LVIDd: 5.0 cm RA long axis LVOT diam LVIDs: 3.0 cm LA A2 area: 16.9 cm FS: 41.2 % LA A4 area: 16.9 cm RA area Ao root diam EPSS: 0.37 cm LA length (vol): 4.9 cm IVSd: 0.76 cm LA vol: 49.3 ml : 17.2 cm Aortic Jxn LVPWd: 0.76 cm LA vol index RA vol: 54.4 ml RA asc Aorta : 27.5 mm2 Diam: 3.1 cm IVC diam: 2.6 cm LV morelos. diameter/BSA LV sys. diameter/BSA RVD1 (basal) RVD2 (mid) (cm/m^2): 2.5 (cm/m^2): 1.5 : 2.6 cm TAPSE: 3.2 cm Doppler Measurements & Calculations Ao V2 max MV E max soham MV E/A: 1.5 TR max soham : 165.8 cm/sec : 99.4 cm/sec Med Peak E' Soham : 243.5 cm/sec Ao max PG MV A max soham TR max PG : 11.0 mmHg : 65.0 cm/sec E/E' med: 7.0 : 23.7 mmHg Ao mean PG MV P1/2t: 48.2 msec Lat Peak E' Soham PA V2 max : 91.2 cm/sec LVOT Max Soham E/E' lat: 6.1 PA mean PG : 98.2 cm/sec E/e' average: 6.6 PA Accel Time CAITLIN(I,D): 2.1 cm : 0.19 sec sev ratio MV dec time MV P1/2t max soham Ao V2 mean LV V1 max PG : 0.16 sec : 113.5 cm/sec MVA(P1/2t): 4.6 cm2 Ao V2 VTI: 29.6 cm LV V1 VTI CAITLIN(V,D): 2.0 cm2 : 18.7 cm PA V2 mean CAITLIN indexed to BSA : 67.7 cm/sec (cm^2/m^2): 1.1 Reading Physician:10:39 AM
--- NOTE | 2017-05-10 11:01 | NUR ---
AMA Pt requesting to leave AMA. Two MD's discussed risks with pt and offered a one time dose of antibiotics and anxiety medications and that she could go later, but pt still insisted on leaving now. Risks discussed included increasing infection and . Pt aware and still wants to leave, paperwork signed. Security called for belongings. IV removed intact. Security escorted pt out and she states she will be walking.
--- NOTE | 2017-05-10 12:01 | NUR ---
Social Work-discharge: SW updated by muck hauler that pt has left AMA. No other SW needs identified. STEVO Pemberton
--- NOTE | 2017-05-10 19:30 | PCM.DC.MED ---
Discharge Summary Date of Service May 10, 2017 Dates of Hospitalization Date of Hospital Admission May 09, 2017 at 18:50 Date of Discharge: May 10, 2017 Providers: Admitting Physician: Pa San MD Primary Care Physician: El Attending Physician: Yolis Hernandez DO Diagnosis at Time of Discharge Diagnosis at Time of Discharge Patient left AMA Consultations ID Brief History Patient is a 27yo female that presents with myalgias with a history of polysubstance abuse, and anxiety. Majority of HPI taken from ED note as patient was unable/unwilling to participate in an interview. Upon entering the room, patient was sleeping. She was responsive to her name and provided single word answers when prompted loudly. Patient has had myalgias for an unknown period of time accompanied by fever and nausea. She has been using IV heroin for one year and denies a history of endocarditis. She reported significant muscle pains in her extremities, fever, and nausea. She admitted to last using heroin this weekend. Hospital Course Patient is a 27F with a history of polysubstance dependence and anxiety that presents with myalgias and tachycardia. 1. Suspected Endocarditis, present on admission and ongoing -Patient with active IV drug use with tachycardia, new systolic murmur, fever, and myalgias -Vancomycin to be dosed by pharmacy -Ceftriaxone 2 g IV every 12 hours -Patient has a sulfa and penicillin allergy, no reaction to ceftriaxone in the emergency department. -Echo is ordered, planned to call cardiology for review of result d/t concern/ need for JORDY -Considered cardiology consult -- This AM, patient wanted to leave AMA very early. I have gone and examined the patient, offered her anxiety control and possible suboxone therapy w/follow up by one of our ER doctors. Infectious diseases also tried to visit with her and offered her antibiotics. Patient said she needs to go home and use her IV heroin and would not stay. -- Patient left AMA before even we had a chance to review the echo: result came back afterwards: "estimated RVSP is 39 mm Hg.Of the valves that were adequately visualized, no obvious vegetations were seen. There is no doppler evidence for significant valvular insufficiency.". 2. Polysubstance dependence, present upon admission and ongoing -Patient admits to heroin use -Screen patient for HIV and hepatitis -Patient left AMA before even we had a chance to review the echo result with cardiology 3. Hypokalemia, present on admission and resolved -Patient has potassium of 3.4 on admission - Potassium replacement protocol -Patient left AMA before even we had a chance to review the echo result with cardiology 4. Hypomagnesemia, present on admission on resolved -Patient has magnesium of 1.3 upon admission -Magnesium replacement protocol -Patient left AMA before even we had a chance to review the echo result with cardiology Exam Vital Signs (Last) Date Time Temp Pulse Resp B/P Pulse Ox O2 Delivery O2 Flow Rate FiO2 05/10/17 09:35 36.8 88 18 101/66 97 Room Air Exam General: Laying in bed, her clothes appear to be in disarray HEENT: NCAT Heart: Soft grade 1+ systolic murmur, w/o radiation Lungs: CTA no crackles or wheezes Abd: Non distended Skin: Left antecubital area appears to be where she has been injecting Neurological: No focal deficits Psychiatric: Alert and oriented, calm Test 05/09/17 17:47 05/09/17 18:05 05/09/17 19:50 05/10/17 03:50 Urine Color Yellow (YELLOW) Urine Appearance Clear (CLEAR,HAZY) Urine pH 5.5 (5.0-8.0) Urine Specific Kiel 1.015 (1.003-1.035) Urine Protein Negativemg/dL (NEG,TRACE) Urine Glucose (UA) Negativemg/dL (NEGATIVE) Urine Ketones Negativemg/dL (NEGATIVE) Urine Occult Blood Large (NEGATIVE) Urine Nitrite Negative (NEGATIVE) Urine Bilirubin Negative (NEGATIVE) Urine Urobilinogen Normalmg/dL (NORMAL) Urine Leukocyte Esterase Negative (NEGATIVE) Urine RBC 3-10/hpf (0-2) Urine WBC 0-5/hpf (0-5) Urine Epithelial Cells Few/hpf (NONE-MOD) Urine Crystals None seen (NONE SEEN) Urine Bacteria Few/hpf (NONE-FEW) Urine Hyaline Casts None/lpf (NONE) Urine Granular Casts None seen (NONE SEEN) Urine Waxy Casts None seen (NONE SEEN) Urine Red Blood Cell Casts None seen (NONE SEEN) Urine White Blood Cell Casts None seen (NONE SEEN) Urine Mucus None seen (None Seen) Urine Trichomonas None seen (NONE SEEN) Urine Yeast None (NONE SEEN) Urinalysis Comment None Urine Culture Reflexed Not indicated Troponin T < 0.010ug/L (0.0-0.011) Lactic Acid Level 1.1mmol/L (0.4-2.0) White Blood Count 11.4th/mm3 (3.8-10.1) Red Blood Count 4.46mil/mm3 (3.90-5.20) Hemoglobin 13.0g/dL (12.0-15.6) Hematocrit 38.7% (35.0-46.0) Mean Corpuscular Volume 86.8fL (81-100) Mean Corpuscular Hemoglobin 29.1pg (27.0-35.0) Mean Corpuscular Hemoglobin Concent 33.6% (32.0-37.0) Red Cell Distribution Width 13.7% (12.3-15.4) Platelet Count 191bil/L (150-400) Neutrophils (%) (Auto) 90.1% (40-74) Lymphocytes (%) (Auto) 6.3% (14-46) Monocytes (%) (Auto) 3.3% (4-12) Eosinophils (%) (Auto) 0.1% (0-5) Basophils (%) (Auto) 0.1% (0-3) Sodium Level 139mEq/L (134-144) Potassium Level 4.2mEq/L (3.5-5.2) Chloride Level 102mEq/L (97-108) Carbon Dioxide Level 21mmol/L (18-29) Blood Urea Nitrogen 9mg/dL (6-20) Creatinine 0.78mg/dL (0.57-1.00) Estimat Glomerular Filtration Rate 128mL/min (>59) Glucose Level 115mg/dL (60-99) Calcium Level 8.6mg/dL (8.5-10.1) Magnesium Level 2.5mg/dL (1.6-2.6) Total Bilirubin 0.4mg/dL (0.0-1.2) Aspartate Amino Transf (AST/SGOT) 48U/L (0-50) Alanine Aminotransferase (ALT/SGPT) 65U/L (0-32) Alkaline Phosphatase 95U/L (25-150) Total Protein 6.8g/dL (6.4-8.4) Albumin 3.5g/dL (3.4-5.0) Hepatitis C Comment . Test 9/11/17 10:05 Discharge Medications No Active Prescriptions or Reported Meds Time spent Greater than 30 minutes was spent in preparation of discharge with greater than 50% of that time dedicated to patient counseling and coordination of care. Yolis Hernandez DO May 10, 2017 19:06
[2017-05-10] MEDS ORDERED: Vancomycin Serum Trough XX ONE (20:00)
[2017-05-11 04:08] LABS: Hepatitis A Antibody IgM Negative (Negative); Hepatitis B Core Antibody IgM Negative (Negative)
== END 2017-05-10 10:49 | disposition left against medical advice (07) | DRG 307 ==
LOC: SED 15:45 → OSC 18:50
PROVIDERS: ADMIT Hospitalist; ATTEND Family Medicine
DX: I38 Endocarditis, valve unspecified (principal); E83.42 Hypomagnesemia; F19.20 Other psychoactive substance dependence, uncomplicated; M79.1 Myalgia; F17.210 Nicotine dependence, cigarettes, uncomplicated; R50.9 Fever, unspecified; E87.6 Hypokalemia; Z88.0 Allergy status to penicillin; Z88.2 Allergy status to sulfonamides

== ENCOUNTER 2017-05-11 21:06 | Emergency (ER) | payer MEDICAID ==
[~2017-05-11] VITALS: Ht 175.3 cm; Wt 81.8 kg
[2017-05-11 21:22] VITALS: BP 121/78; PULSE 99; RESP 16; O2SAT 97
== END 2017-05-12 | disposition left against medical advice (07) ==
LOC: SED 23:16
DX: I51.89 Other ill-defined heart diseases (principal); Z53.21 Procedure and treatment not carried out due to patient leaving prior to being seen by health care provider

== ENCOUNTER 2017-05-12 03:56 | Inpatient (IN) | payer MEDICAID ==
[~2017-05-12] VITALS: Ht 175.3 cm; Wt 83.5 kg
[2017-05-12] VITALS (9 sets, daily range): BP systolic 100–123; BP diastolic 53–82; PULSE 73–90; RESP 16–22; O2SAT 97–100
--- NOTE | 2017-05-12 04:27 | ED.REPORT ---
HPI-General Illness Date of Service May 12, 2017 ED Provider: Magdi Jean MD Pt is a 27 y/o female with a history of anxiety and IVDA who presents to the ED c/o generalized malaise onset a few days ago. She was admitted to the hospital on 05/09/17 for suspected endocarditis, but left AMA because she got scared. Pt was started on antibiotics in the hospital. She returned to the ED today because she states her mother talked her into coming.Additional symptoms include headache, chills, and hip pain. She denies fever. Pt admits to recently doing heroin. Nursing Notes Stated Complaint: ANTIBIOTICS, INFECTION IN HEART Chief Complaint: General Complaint Nursing Notes Reviewed: Yes Allergies: Coded Allergies: Sulfa (Sulfonamide Antibiotics) (Verified Allergy, Severe, 05/12/17) Penicillins (Verified Allergy, Unknown, rash, 05/12/17) No Active Prescriptions or Reported Meds General Time Seen by MD: 04:27 Chief Complaint Other (Generalized malaise) Hx Obtained From: Patient Arrived By: Walk-in Sudden in Onset?: No Symptom Duration: Constant Quality: Painful Severity: Current: Mild Severity: Maximum: Moderate Recent Healthcare: Recent doctor visit, Recent hospitalization Similar Sx Previous: Yes Past Medical History Past Medical History Anxiety Polysubstance abuse Past Surgical History None reported Family History Noncontributory Smoking History Current Every Day Smoker Social History Alcohol Use: Denies alcohol use Drug Use: IV drugs Other Social History: Local resident Ambulatory Status Independent Review of Systems Full Review of Systems Constitutional: Reports: Chills, Weakness - generalized, Denies: Fever Respiratory: Denies: Non-productive cough, Prod cough, clear, Shortness of breath Cardiovascular: Denies: Chest pain Musculoskeletal: Reports: Joint pain (Hip pain), Denies: Back pain, Neck pain Neurologic: Reports: Headache Complete sys rev & neg: except as marked. Physical Exam Vital Signs Vital Signs Date Time Temp Pulse Resp B/P Pulse Ox O2 Delivery O2 Flow Rate FiO2 05/12/17 04:11 36.5 83 16 106/73 99 Room Air Initial VS: Reviewed Head / Eyes: Atraumatic, Normocephalic Neck: Supple, Full range of motion Extremities: Vascular intact, Neuro intact, No swelling, No tenderness Skin: Warm, Dry, No cyanosis General/Constitutional: Awake, Alert Head / Eyes: Atraumatic, Normocephalic Respiratory / Chest: Atraumatic, Breath sounds NL, Breath sounds = bilat, No respiratory distress Cardiovascular: Heart rate NL, Regular rhythm, Heart sounds NL, No murmurs Abdomen: Soft, Non-tender Interpretation & Diagnostics Lab Results Interpretation Result Diagram: 05/12/17 0515 05/12/17 0515 Test 05/12/17 05:15 White Blood Count 5.4th/mm3 (3.8-10.1) Red Blood Count 4.63mil/mm3 (3.90-5.20) Hemoglobin 13.3g/dL (12.0-15.6) Hematocrit 39.2% (35.0-46.0) Mean Corpuscular Volume 84.7fL (81-100) Mean Corpuscular Hemoglobin 28.7pg (27.0-35.0) Mean Corpuscular Hemoglobin Concent 33.9% (32.0-37.0) Red Cell Distribution Width 13.8% (12.3-15.4) Platelet Count 232bil/L (150-400) Neutrophils (%) (Auto) 51.1% (40-74) Lymphocytes (%) (Auto) 36.4% (14-46) Monocytes (%) (Auto) 11.9% (4-12) Eosinophils (%) (Auto) 0% (0-5) Basophils (%) (Auto) 0.4% (0-3) Erythrocyte Sedimentation Rate 11mm/hr (0-32) Prothrombin Time 9.6sec (8.1-12.5) Prothromb Time International Ratio 0.90ratio Activated Partial Thromboplast Time 30.3sec (22.8-33.0) Sodium Level 140mEq/L (134-144) Potassium Level 4.1mEq/L (3.5-5.2) Chloride Level 102mEq/L (97-108) Carbon Dioxide Level 22mmol/L (18-29) Blood Urea Nitrogen 12mg/dL (6-20) Creatinine 0.69mg/dL (0.57-1.00) Estimat Glomerular Filtration Rate 147mL/min (>59) Glucose Level 93mg/dL (60-99) Calcium Level 9.0mg/dL (8.5-10.1) Magnesium Level 2.0mg/dL (1.6-2.6) Total Bilirubin 0.2mg/dL (0.0-1.2) Aspartate Amino Transf (AST/SGOT) 32U/L (0-50) Alanine Aminotransferase (ALT/SGPT) 55U/L (0-32) Alkaline Phosphatase 103U/L (25-150) Troponin T < 0.010ug/L (0.0-0.011) Pro-B-Type Natriuretic Peptide 41.99pg/mL (0-130) Total Protein 7.7g/dL (6.4-8.4) Albumin 3.9g/dL (3.4-5.0) Hold Finn Top Tube Received (Received) ECG Interpretation ECG Interpretation: Sinus rhythm, rate 74 Time: 05:45 Interpreted by: ED physician X-Ray Chest Interpretation Chest Xray Interpretation: Negative View: Portable, 1 view Interpretation / Wet Read by: Wet read ED physician X-Ray Interpretation Xray Interpretation: Hip X-Ray: Normal Interpretation / Wet Read by: Emily lazo ED physician Re-Eval/Medical Decision Med Decision/Clinical Course 27-year-old heroin addict presents at the request of mother for resumption therapy after leaving AGAINST MEDICAL ADVICE yesterday. She promises to remain in the hospital and comply with care. She acknowledges using heroin in her hiatus from the hospital. She complains of headache and hip pain but CT of the cranium is negative for lesions and the hips are unremarkable on plain films. Admitted to the medicine service now stable condition. Labs are essentially unremarkable. Source of Hx: Old records Re-Evaluation/Progress Note: Discussed plan for admission. Pt understands and agrees with plan. All questions addressd. Consultation : Referral / Consult Name: Pa San MD Consulted With: Hospitalist Call Returned at: 06:06 Popcorn Attendant: Will see patient, Agrees with plan, Accepts admit Note: Discussed pt's case with hospitalist, Dr. San. He accepts admission. Counseled Regarding: Diagnosis, Lab results, Need for admission Discharge & Departure Primary Impression: Subacute bacterial endocarditis (SBE) Additional Impressions: IV drug abuse Heroin addiction Disposition: ADMITTED TO HOSPITAL Discharge Condition All VS Reviewed: Yes Condition: Stable Referrals: NOPCP (PCP) Scribe Attestation Portions of this note were transcribed by Kaylie Wilson. I, Dr. Jean, personally performed the history, physical exam and medical decision-making; I reviewed and confirmed the accuracy of the information in the transcribed note. Magdi Jean MD May 12, 2017 04:27 Kaylie Wilson May 12, 2017 04:34
[2017-05-12 05:27] LABS: BASOPHILS % (AUTO) 0.4 % (0-3); EOSINOPHILS % (AUTO) 0 % (0-5); MONOCYTES % (AUTO) 11.9 % (4-12); Mean Corpuscular Hemoglobin 28.7 pg (27.0-35.0); Mean Corpuscular Volume 84.7 fL (81-100); NEUTROPHILS % (AUTO) 51.1 % (40-74); Platelet Count 232 bil/L (150-400)
[2017-05-12 05:43] LABS: INR 0.9 ratio
[2017-05-12 05:45] LABS: ERYTHROCYTE SEDIMENTATION RATE 11 mm/hr (0-32)
[2017-05-12 05:52] LABS: TROPONIN T < 0.010 ug/L (0.0-0.011)
[2017-05-12] MEDS ORDERED: Ondansetron 2 mg/mL 2 mL Inj IVPUSH PRN ×2 (06:40→08:30)
--- NOTE | 2017-05-12 08:12 | DRSVH ---
PROCEDURE: X-RAY CHEST, TWO VIEWS ([id number]) INDICATIONS: pain bilat, HEART INFECTION TECHNIQUE: 2 views of the chest were acquired. COMPARISON: None. FINDINGS: Surgical changes and devices: None. Lungs and pleura: No pleural effusions or pneumothorax. Lungs are clear. Mediastinum: Mediastinal contours are normal. Heart size is normal. Bones and chest wall: No suspicious bony abnormalities. Soft tissues appear unremarkable. IMPRESSION: Normal for age. Source of pain is not seen. Dictated by: Gray Iglesias M.D. on 05/12/2017 at 8:11 Approved by: Gray Iglesias M.D. on 05/12/2017 at 8:11
--- NOTE | 2017-05-12 08:13 | DRSVH ---
PROCEDURE: X-RAY PELVIS, ONE OR TWO VIEWS ([id number]) INDICATIONS: IDIOPATHIC pain bilat TECHNIQUE: Single frontal view of the pelvis acquired. COMPARISON: None. FINDINGS: Bones: No fractures or dislocations. No suspicious bony lesions. Soft tissues: Visualized bowel gas pattern is normal. No suspicious soft tissue calcifications. IMPRESSION: Normal for age. Source of pain is not seen. Dictated by: Gray Iglesias M.D. on 05/12/2017 at 8:11 Approved by: Gray Iglesias M.D. on 05/12/2017 at 8:12
--- NOTE | 2017-05-12 08:50 | NUR ---
admit pt arrived on unit and was very difficult to keep awake. Pt would answer a question and fall right back asleep. VS WNL. Pt was awake and alert and oriented X4 around 1100. Sharps container removed from room and all personal belongings were locked closet except for cell phone. Pt stated that she used heroin yesterday. Denied pain, N/V or abd discomfort. Pt stated that staff can discuss her medical care with her mother. Pt is eating and watching television
--- NOTE | 2017-05-12 10:48 | PCM.HPMED ---
Subjective Date of Service May 12, 2017 Primary Provider: Admitting Physician: Pa San MD Primary Care Physician: El Attending Physician: Pa San MD Chief Complaint: malaise History of Present Illness: Patient is a 27yo female with active polysubstance abuse, and anxiety Patient was admitted 2 days ago with tachycardia, new systolic murmur, fever, and myalgias. pt also had nausea, vomiting. Given concern for IVDU, endocarditis was suspected, pt received CFX, but AMAed. pt returned to hospital 2days later today, as her friend recommends, pt stated that she did well after she left, denied n/v, was eating okay. still actively using heroin IV on left AC ,denied IM use. pt denied having F,C at home, denied myalgia. BCX from 05/10 came back negative. However, noticed HCV ab positive. pt admitted heroin use and is willing to get help, interested in detox in Meth[place]. pt denied having endocarditis, OM in the past. denied other drug use except smoking cig, not drinking. VS 106/53, 123/55, 83, afebrile, 99% on RA, pt looked well, labs were unremarkable. ROS: pt denied n/v/c/d, SOB, chest pain, palpitation. eating with good appetite , mildly anxious but not sweating, AAOX3 Review of Systems: Pertinent positives as noted in history of present illness. All other systems were reviewed and are negative Allergies Coded Allergies: Sulfa (Sulfonamide Antibiotics) (Verified Allergy, Severe, 05/12/17) Penicillins (Verified Allergy, Unknown, rash, 05/12/17) Home Medications No active medication PMH PMH 1. Polysubstance Dependence 2. Anxiety Surgical History 1. No known history Family History no hx of CAD Social History Hx Alcohol Use: No Hx Substance Use: Yes (heroin use daily) Hx Tobacco Use: Yes Smoking Status: Current Every Day Smoker Exam Vital Signs Vital Sign - Last Date Time Temp Pulse Resp B/P Pulse Ox O2 Delivery O2 Flow Rate FiO2 05/12/17 08:52 37.0 74 16 122/73 100 Room Air Exam NAD, comfortably laying down on the bed no JVD, MMM, no LAD RRR, nl s1, s2 no mrg CTAB, no w,c S,ND,NT,normoactive BS+ warm, no edema, pulses 2/2 indurated left AC from chronic IV Lab and Diagnostics Result Diagram: 05/12/1751405/12/17514 Assessment & Plan Acute, active probable infection, POA, suspected endocarditis recently, however, currently other than elevated PCT, SIRS neg. BCX from 05/10 no organisms found -appreciate ID for further w/u, eval, -will monitor w/o abx for now, -send 2sets of BCX today newly found HCV+, POA< likely hepatitis C infection from IVDU, labs showed mildly elevated alt, also suggestive of infection, -sent genotype, likely FU in GI clinic for tx active heroin use, POA, currently not in WD, appreciate VICKI CD assessment. Chronic, stable anxiety, not on meds, appreciate VICKI adams first, Dispo: Patient is admitted under observation status with expectation that she will be discharged within 24-48 hours, diet:general dvt ppx:HSQ Full code Time spent 65min Lukas Garza MD May 12, 2017 09:16
[2017-05-12] MEDS ORDERED: cefTRIAXone Inj 2,000 MG in Dextrose 5% Minibag Plus 50 ML IV SCH (11:30)
--- NOTE | 2017-05-12 12:11 | DRSVH ---
PROCEDURE: CT BRAIN WITHOUT CONTRAST ([id number]) INDICATIONS: BULLOCK, ivda TECHNIQUE: Noncontrast 4.5 mm thick angled axial sections acquired from the foramen magnum to the vertex, with c oronal reformats. COMPARISON: [facility], CT, CT BRAIN WO CON, 04/09/2016, 1:56. FINDINGS: Image quality: Excellent. CSF spaces: Basal cisterns are patent. No extra-axial fluid collections. Ventricles are normal in size and shape. Brain: No midline shift. No intracranial masses or hemorrhage. Dias-white matter interface is norm al. Skull and face: Calvarium and visualized facial bones are intact, without suspicious lesions. Sinuses: Visualized sinuses and mastoids are clear. IMPRESSION: 1. No acute intracranial process. Dictated by: Myrtle Chavez M.D. on 05/12/2017 at 12:08 Approved by: Myrtle Chavez M.D. on 05/12/2017 at 12:09
--- NOTE | 2017-05-12 15:30 | NUR ---
attempted to leave unit Pt was found going into elevator by [facility] increment manager stating that she was going out for a smoke. Pt was diaphoretic and stated that she knew that she was not allowed to leave. This RN asked the pt if she had cigarettes on and she stated no, I was going to bum one. Pt returned to her room with this RN and she had a tourniquet on her room table. Pt was reminded about the rules of where she could go and that we have the right to refuse visitors if she breaks them. Pt stated that she understood.
[2017-05-12] MEDS ORDERED: Buprenorphine 2 mg SL Tablet SL ONE (15:55)
[2017-05-12] MEDS ORDERED: 0.9% Sodium Chloride 100 ML ONE (16:01)
--- NOTE | 2017-05-12 19:33 | CONS ---
[address] [address] CONSULTATION REPORT PATIENT: EFREN MANZO : 1990 MR#: [id number] ADMIT: 05/12/2017 JOB ID: [id number] DATE OF SERVICE: 05/12/2017 INFECTIOUS DISEASE CONSULTATION: REASON FOR CONSULTATION: Possible systemic infection in an IV drug user. INTERVAL HISTORY: The patient is a 27-year-old local woman who lives nearby here with her mother, who also happens to be a patient of mine. The patient reports that about one year ago she fell in with the wrong [place] of friends and started injecting heroin on a frequent basis. The patient tells me that about four days ago she developed the abrupt onset of a short-lived process which involved primarily voluminous vomiting including green bilious vomit, nausea, and some abdominal pain. This started to settle down but she then developed myalgias, arthralgias, subjective fevers, and weakness. She then had friends take her to the emergency department, where she was admitted on Wednesday night, May 09. It was noted that she had a systolic murmur at that time and there was a concern that she might have endocarditis as a cause of her fever, nausea, vomiting, myalgias, and arthralgias, so she was admitted. I actually stopped by to see her Wednesday midmorning as I recall and she was in the process of signing out AMA. I told her signing out AMA if she indeed had endocarditis could prove to be extremely hazardous and even fatal, but she nonetheless left, saying that she needed to go inject additional drugs because of rising anxiety. During the brief time she was here in the hospital a couple things were accomplished, however, in that she had an echocardiogram and had two blood cultures drawn before she received some ceftriaxone. The echo showed basically normal valves and there was no evidence of any valvular insufficiency or vegetations. After 48 hours out of the hospital she then came back again yesterday evening with complaints of generalized malaise and some weakness, mild headache, subjective chills but no longer any fevers, and persistent right upper molar toothache. She notes that the toothache was actually present throughout all these events. She notes that she is actually feeling better at the time of this 2nd admission of the week than she did on the first admission back on Wednesday night. At this point she is much more alert and conversational than she was and seems entirely oriented and rational. At this point she tells me she has very little headache, a bit of dental pain at the right upper molar as mentioned. No sore throat. No cough. No shortness of breath. Minimal if any nausea. No additional vomiting or abdominal pain. No dysuria and no joint pain. The myalgias and arthralgias have also largely subsided. PAST MEDICAL HISTORY: 1. Polysubstance abuse including IV heroin. 2. Anxiety. SOCIAL HISTORY: The patient is currently unemployed. She is a cigarette smoker but not an alcohol consumer. FAMILY HISTORY: Negative for TB in first- and second-degree relatives. REVIEW OF SYSTEMS: As noted the patient has very minimal headache, without any confusion or cognitive issues. She has no neurologic symptoms. No blurry vision. No pain in her eyes. She has no sore throat or trouble swallowing. She does have pain in the right upper molar, and this is the most lateral molar, that has been present for weeks or months and she actually thinks it is maybe getting a little bit spontaneously better or maybe she is just getting used to it. She does noted some drainage around the tooth which is foul tasting on occasion. She has no significant cough. No shortness of breath or chest pain. She has a very low-level nausea and anorexia but no more vomiting. No diarrhea at any time. No dysuria, urgency, or frequency. She injects drugs exclusively into the antecubital fossa bilaterally and these areas are not especially tender or inflamed. She has no neurologic symptoms. No swelling of the joints. No skin rash. Remainder of review of systems negative. PHYSICAL EXAMINATION: Reveals an afebrile woman temp 36.9, pulse 90, respiratory rate 16, blood pressure 100/68. She is saturating well on room air. She is in no distress at all, in fact looks very comfortable and composed this evening. Neurologically she is entirely intact, moves everything, good strength. Head without trauma. Eyes without conjunctivitis or scleral icterus. Oral cavity: No thrush or hairy leukoplakia. She does have about half of her right upper most lateral molar missing and when I examine it, it is somewhat dark on top. I did reach into her mouth with a gloved finger, though, and pushed it pretty hard and there was very minimal tenderness, suggesting to me she does not have a dental abscess. There is little in the way of gingival reaction around this tooth. Neck is supple. No adenopathy. Lungs completely clear posteriorly. Cardiac tones regular rate and rhythm with a soft 1/6 systolic murmur, heard best along the left sternal border. Her abdomen is soft and nontender. There is no organomegaly, no suprapubic fullness. She does not have a [place]. Her joints are free of synovitis. There is no evidence for cellulitis. Her muscles are not tender. As noted, she has excellent range of motion of all joints and neurologically intact. LABORATORIES: Include white count which was here on Wednesday, May 10, ,400 and now 5400 with a totally normal diff. Creatinine 0.69. ALT is 55, AST 32, alk phos 103. Procalcitonin 4.61. Urinalysis without white cells. Hepatitis C antibody is positive. I have ordered a hepatitis C viral load as well as genotype. HIV is negative. Streptozyme interestingly 278. Blood cultures from May 09 in the ER, as well as done this morning, are all negative, and the ones from the are now over 3 days old. MRSA screen is negative. IMAGING: Includes two chest x-rays, one done on the which was clear, and I reviewed that. Another one done today, which I personally reviewed, is entirely clear. She also has a brain CT which was done because of her headache and that is normal. The echocardiogram, as mentioned from the , shows no valvular lesions. IMPRESSION: At this point the patient looks entirely different than when I briefly met her on her way out the door back on May 10. She is now awake, alert, composed, and actually looks quite well. There is little here to suggest an ongoing serious infection as she has no fever, no leukocytosis, no left shift, no physical findings of any kind, and a negative echo, with blood cultures that are now approaching 4 days old which are negative. The only concerns I would have would be her elevated procalcitonin, which is quite striking, as well as her moderately elevated ASO titer. ASO titers indicate recent invasive group A strep infections, but such an effect can persist for months, and so it is hard to know if this ASO titer reflects an acute group A strep infection or rather one occurring weeks or months ago. RECOMMENDATIONS: 1. We await the maturation of the blood cultures from May 09, as well as from earlier this morning. 2. I would keep the patient on ceftriaxone as a simple single agent therapy while we await additional developments. This will also provide good coverage for her group A strep if indeed there is a significant infection there. 3. I have ordered a hepatitis C viral load and genotype to facilitate evaluation and management of this problem. 4. I do not see a reason to repeat an echocardiogram, as we just have one that is 3 days old. 5. Will continue to closely follow this complex patient with you, but if her blood cultures continue to be negative and she looks this well, she can probably be discharged in the next 24-48 hours with oral antibiotics. Thank you very much.
--- NOTE | 2017-05-12 21:00 | NUR ---
AMA Pt spoke with this RN about leaving. Pt stated "I really just need a cigarette. And all of this is fucking stressing me out." Told pt at least staying for blood cultures to result would be worth her time. Pt said she would think about it. Pt soon after called this RN into room again. Pt stated "I think I'm going to leave. I'm sorry." Explained risks of leaving AMA, pt understood. Hospitalist lauren RODRIGUEZ pt leaving AMA. Paperwork readied. Addendum: 05/12/17 at 2114 by MIHIR WALLACE RN Pt left at 2112
[2017-05-13] MEDS ORDERED: Buprenorphine 2 mg SL Tablet SL SCH (08:30)
--- NOTE | 2017-05-13 12:40 | PCM.DC.MED ---
Discharge Summary Date of Service May 13, 2017 Dates of Hospitalization Date of Hospital Admission May 12, 2017 at 07:33 Date of Discharge: May 12, 2017 Providers: Admitting Physician: Pa San MD Primary Care Physician: Nopvishal Attending Physician: Pa San MD Diagnosis at Time of Discharge Diagnosis at Time of Discharge acute dx probable infection, suspected endocarditis newly found hepatitis C infection active heroin use, cig smoking Chronic dx anxiety Consultations ID Brief History Patient is a 27yo female with active polysubstance abuse, and anxiety Patient was admitted 2 days ago with tachycardia, new systolic murmur, fever, and myalgias. pt also had nausea, vomiting. Given concern for IVDU, endocarditis was suspected, pt received CFX, but AMAed. pt returned to hospital 2days later today, as her friend recommends, pt stated that she did well after she left, denied n/v, was eating okay. still actively using heroin IV on left AC ,denied IM use. pt denied having F,C at home, denied myalgia. BCX from 05/10 came back negative. However, noticed HCV ab positive. pt admitted heroin use and is willing to get help, interested in detox in Methadone. pt denied having endocarditis, OM in the past. denied other drug use except smoking cig, not drinking. VS 106/53, 123/55, 83, afebrile, 99% on RA, pt looked well, labs were unremarkable. ROS: pt denied n/v/c/d, SOB, chest pain, palpitation. eating with good appetite , mildly anxious but not sweating, AAOX3 Hospital Course This is second admission for possible endocarditis, although at this admission, pt didn't have any SIRS, no obvious signs of infection. BCX ngtd. pt received ceftriaxone 1dose, elevated ASO titer from last admission, was likely reflect active infection. in fact, BCX from 05/10 also was negative. Plan was to keep Ceftriaxone, then possible d/c if pt afebrile>48hrs. however, pt eventually AMAed on 2nd day of hospitalization. Acute, active probable infection, POA, suspected endocarditis recently, however, currently other than elevated PCT, SIRS neg. BCX from 05/10 no organisms found -appreciate ID for further w/u, eval, -will monitor w/o abx for now, -send 2sets of BCX today newly found HCV+, POA< likely hepatitis C infection from IVDU, labs showed mildly elevated alt, also suggestive of infection, -sent genotype, likely FU in GI clinic for tx active heroin use, POA, currently not in WD, appreciate SW CD assessment. Chronic, stable anxiety, not on meds, appreciate VICKI adams first, Dispo: Patient is admitted under observation status with expectation that she will be discharged within 24-48 hours, diet:general dvt ppx:HSQ Full code Exam Vital Signs (Last) Date Time Temp Pulse Resp B/P Pulse Ox O2 Delivery O2 Flow Rate FiO2 05/12/17 20:54 36.8 87 18 120/82 100 Room Air Exam pt AMAed Test 05/12/17 05:15 White Blood Count 5.4th/mm3 (3.8-10.1) Red Blood Count 4.63mil/mm3 (3.90-5.20) Hemoglobin 13.3g/dL (12.0-15.6) Hematocrit 39.2% (35.0-46.0) Mean Corpuscular Volume 84.7fL (81-100) Mean Corpuscular Hemoglobin 28.7pg (27.0-35.0) Mean Corpuscular Hemoglobin Concent 33.9% (32.0-37.0) Red Cell Distribution Width 13.8% (12.3-15.4) Platelet Count 232bil/L (150-400) Neutrophils (%) (Auto) 51.1% (40-74) Lymphocytes (%) (Auto) 36.4% (14-46) Monocytes (%) (Auto) 11.9% (4-12) Eosinophils (%) (Auto) 0% (0-5) Basophils (%) (Auto) 0.4% (0-3) Erythrocyte Sedimentation Rate 11mm/hr (0-32) Prothrombin Time 9.6sec (8.1-12.5) Prothromb Time International Ratio 0.90ratio Activated Partial Thromboplast Time 30.3sec (22.8-33.0) Sodium Level 140mEq/L (134-144) Potassium Level 4.1mEq/L (3.5-5.2) Chloride Level 102mEq/L (97-108) Carbon Dioxide Level 22mmol/L (18-29) Blood Urea Nitrogen 12mg/dL (6-20) Creatinine 0.69mg/dL (0.57-1.00) Estimat Glomerular Filtration Rate 147mL/min (>59) Glucose Level 93mg/dL (60-99) Calcium Level 9.0mg/dL (8.5-10.1) Magnesium Level 2.0mg/dL (1.6-2.6) Total Bilirubin 0.2mg/dL (0.0-1.2) Aspartate Amino Transf (AST/SGOT) 32U/L (0-50) Alanine Aminotransferase (ALT/SGPT) 55U/L (0-32) Alkaline Phosphatase 103U/L (25-150) Troponin T < 0.010ug/L (0.0-0.011) Pro-B-Type Natriuretic Peptide 41.99pg/mL (0-130) Total Protein 7.7g/dL (6.4-8.4) Albumin 3.9g/dL (3.4-5.0) Procalcitonin 4.61ng/mL (0.00-0.08) Hold Finn Top Tube Received (Received) Discharge Medications No Active Prescriptions or Reported Meds Followup Plan Disposition: AMA Time spent 65min Lukas Garza MD May 13, 2017 12:40
== END 2017-05-12 21:11 | disposition left against medical advice (07) | DRG 289 ==
LOC: SED 03:56 → MPC 07:33
PROVIDERS: ADMIT Hospitalist; ATTEND Internal Medicine
DX: I33.0 Acute and subacute infective endocarditis (principal); F11.20 Opioid dependence, uncomplicated; F17.210 Nicotine dependence, cigarettes, uncomplicated; F41.9 Anxiety disorder, unspecified; B19.20 Unspecified viral hepatitis C without hepatic coma